=== PATIENT | male | born 1985 | race Two or more races ===

== ENCOUNTER 2023-08-29 16:45 | Inpatient (IN) | payer OTHER ==
[2023-08-29] VITALS (7 sets, daily range): BP systolic 117–126; BP diastolic 75–83; PULSE 74–98; RESP 14–19; TEMP 98.4–98.7; O2SAT 20–100
[~2023-08-29] VITALS: Ht 172.7 cm; Wt 56.6 kg
[2023-08-29 18:07] LABS: Chloride 111 mmol/L (98-107); Potassium 3.4 mmol/L (3.5-5.1); Sodium 140 mmol/L (136-145)
[2023-08-29 18:08] LABS: Anion Gap 7 (5-15); Carbon Dioxide 22 mmol/L (20-30)
[2023-08-29 18:09] LABS: Calcium 8.8 mg/dL (8.7-10.4)
[2023-08-29 18:13] LABS: BUN/Creatinine Ratio 7.9 (10.0-20.0); Blood Urea Nitrogen 6 mg/dL (9-23); Glucose 98 mg/dL (74-106); INR 1.42 (0.9-1.15); Partial Thromboplastin Time 29.1 SEC (24.5-34.5); Prothrombin Time 14.6 sec (9.3-11.8)
[2023-08-29 18:32] LABS: Basophils # (auto) 0 10 ^3/uL (0-0.2); Eosinophils # (auto) 0.1 10 ^3/uL (0-0.8); Mean Corpuscular Volume 47.8 fL (80.0-100.0); Monocytes # (auto) 0.4 10 ^3/uL (0-1.3); Neutrophils # (auto) 2.4 10 ^3/uL (1.6-8.6)
[2023-08-29 18:34] LABS: Basophils % (auto) 0.1 % (0.0-2.0); Eosinophils % (auto) 1.8 % (0.0-7.0); Hematocrit 26.4 % (41.0-53.0); Hemoglobin 7.3 g/dL (13.5-17.5); Lymphocytes # (auto) 2.1 10 ^3/uL (0.4-5.4); Lymphocytes % (auto) 42.3 % (10.0-50.0); Mean Corpuscular Hemoglobin 13.3 pg (28.0-32.0); Mean Corpuscular Hgb Conc. 27.7 g/dL (32.0-36.0); Monocytes % (auto) 8.4 % (0.0-12.0); Neutrophils % (auto) 47.4 % (37.0-80.0); Nucleated Red Blood Cells % 0.2 %; Red Blood Cells 5.52 10^6/uL (4.5-5.90)
[2023-08-29 19:08] LABS: Urine WBC None Seen /hpf (0 - 3)
[2023-08-29 19:19] LABS: Anisocytosis Slight; Hypochromia Marked; Platelet Estimate Adequate
[2023-08-29 19:24] LABS: Urine Bacteria NONE SEEN /hpf (None Seen); Urine Blood Negative /uL (Negative); Urine Clarity Clear (Clear); Urine Color Colorless (Yellow); Urine Protein, UAD Negative (Negative); Urine Specific Gravity 1.002 (1.001-1.035); Urine Urobilinogen Normal (Negative); Urine pH 6.5 (5.0-8.0)
[2023-08-29] MEDS ORDERED: IOHEXOL 300 MG/ML 100ML BOTTLE IJ ONE (20:43)
[2023-08-29] MEDS ORDERED: CYANOCOBALAMIN (B-12) 1000 MCG/1 ML VIAL IM ONE (21:45)
[2023-08-29] MEDS ORDERED: PANTOPRAZOLE 40 MG/10 ML VIAL INJ IV ONE (22:00)
[2023-08-29] MEDS ORDERED: TAMSULOSIN HYDROCHLORIDE 0.4 MG CAP PO ONE (22:00)
[2023-08-29] MEDS ORDERED: POLYETHYLENE GLYCOL 17 GM PWDR PO ONE ×2 (22:00)
[2023-08-30] VITALS (11 sets, daily range): BP systolic 102–117; BP diastolic 63–87; PULSE 66–76; RESP 16–20; TEMP 36.4; O2SAT 20–100
[2023-08-30] MEDS ORDERED: ONDANSETRON HCL 4 MG/2 ML VIAL IV ONE (02:00)
[2023-08-30] MEDS ORDERED: FOLIC ACID 1 MG TAB PO ONE (10:00)
[2023-08-30 10:31] LABS: Basophils # (auto) 0 10 ^3/uL (0-0.2); Eosinophils # (auto) 0.1 10 ^3/uL (0-0.8); Lymphocytes # (auto) 1.5 10 ^3/uL (0.4-5.4); Monocytes # (auto) 0.4 10 ^3/uL (0-1.3)
[2023-08-30 10:33] LABS: Basophils % (auto) 0.3 % (0.0-2.0); Eosinophils % (auto) 2.7 % (0.0-7.0); Hematocrit 33.3 % (41.0-53.0); Hemoglobin 9.4 g/dL (13.5-17.5); Lymphocytes % (auto) 35.8 % (10.0-50.0); Mean Corpuscular Hemoglobin 15.3 pg (28.0-32.0); Mean Corpuscular Hgb Conc. 28.2 g/dL (32.0-36.0); Mean Corpuscular Volume 54.2 fL (80.0-100.0); Neutrophils # (auto) 2.1 10 ^3/uL (1.6-8.6); Neutrophils % (auto) 52.2 % (37.0-80.0); Nucleated Red Blood Cells % 0.3 %; Red Blood Cells 6.15 10^6/uL (4.5-5.90); White Blood Cell 4.1 10^3/uL (4.4-10.8)
[2023-08-30 10:35] LABS: Red Cell Distribution Width 33.2 % (11.8-14.3)
[2023-08-30 10:47] LABS: Alanine Aminotransferase 25 U/L (7-40); Albumin 3.8 g/dL (3.2-4.8); Alkaline Phosphatase 62 U/L (46-116); Anion Gap 4 (5-15); Anisocytosis Moderate; Aspartate Aminotransferase 20 U/L (13-40); Bilirubin, Total 0.9 mg/dL (0.2-1.0); Blood Urea Nitrogen 5 mg/dL (9-23); Carbon Dioxide 25 mmol/L (20-30); Chloride 113 mmol/L (98-107); Glucose 91 mg/dL (74-106); Hypochromia Moderate; Potassium 4.2 mmol/L (3.5-5.1); Sodium 142 mmol/L (136-145); Total Protein 6.6 g/dL (5.7-8.2)
[2023-08-30 10:48] LABS: Ovalocytes MODERATE; Platelet Estimate Adequate; Polychromasia Slight; Tear Drop Cells FEW
[2023-08-30 11:03] LABS: BUN/Creatinine Ratio 6.8 (10.0-20.0)
[2023-08-30] MEDS ORDERED: amLODIPine BESYLATE 5 MG TAB PO ONE (17:30)
[2023-08-31 05:00] VITALS: BP 124/72; PULSE 74; RESP 16; TEMP 98; O2SAT 97
[2023-08-31 08:00] VITALS: PULSE 69; PULSE 71; RESP 20; O2SAT 97
[2023-08-31 08:52] VITALS: BP 114/72; PULSE 69; RESP 20; TEMP 98.2; O2SAT 97
[2023-08-31 12:28] VITALS: BP 107/80; PULSE 67; RESP 20; TEMP 98.3; O2SAT 97
[2023-08-31 17:17] VITALS: BP 102/63; PULSE 79; RESP 20; TEMP 98.1; O2SAT 97
[2023-08-31 20:00] VITALS: PULSE 92; RESP 18; O2SAT 95
[2023-08-31] MEDS: Ensure HIGH Protein Chocolate 8oz Bottle PO SCH (22:00)
[2023-08-31] MEDS ORDERED: TAMSULOSIN HYDROCHLORIDE 0.4 MG CAP PO ONE (22:00)
[2023-08-31] MEDS: PANTOPRAZOLE 40 MG TAB PO SCH (23:23)
[2023-09-01 05:14] VITALS: BP 111/65; PULSE 73; RESP 14; TEMP 98.2; O2SAT 95
[2023-09-01] MEDS: Ensure HIGH Protein Chocolate 8oz Bottle PO SCH ×2 (07:30→11:30)
[2023-09-01 08:30] VITALS: PULSE 73; RESP 14; O2SAT 95
[2023-09-01 09:00] VITALS: BP 110/71; PULSE 73; RESP 18; TEMP 98.2; O2SAT 97
[2023-09-01] MEDS: PANTOPRAZOLE 40 MG TAB PO SCH (09:58)
[2023-09-01] MEDS ORDERED: TAMSULOSIN HYDROCHLORIDE 0.4 MG CAP PO SCH ×2 (10:00→18:00)
[2023-09-01] MEDS ORDERED: FOLIC ACID 1 MG TAB PO SCH (10:00)
[2023-09-01 12:15] VITALS: BP 105/63; PULSE 75; RESP 16; TEMP 97.7; O2SAT 97
[2023-09-01 17:00] VITALS: BP 104/74; PULSE 81; RESP 18; TEMP 98.4; O2SAT 97
[2023-09-01] MEDS ORDERED: AML5T PO (17:27)
[2023-09-01] MEDS ORDERED: TAMS-35 PO (17:29)
[2023-09-01] MEDS ORDERED: FOLI-119 PO (17:29)
[2023-09-01] MEDS ORDERED: PANT40TA2 PO (17:29)
[2023-09-05] MEDS ORDERED: CYANOCOBALAMIN (B-12) 1000 MCG/1 ML VIAL IM SCH (22:00)
== END 2023-09-01 18:19 | DRG 812 ==
LOC: ER 16:45 → TELE 21:26 → EEVIPCON 21:26 → TELE-WESTW 22:21
PROVIDERS: ADMIT Specialist; ATTEND Internal Medicine
PROC: 30233N0 Transfusion of Autologous Red Blood Cells into Peripheral Vein, Percutaneous Approach (ICD-10-PCS; principal; 2023-08-29)
DX: D56.9 Thalassemia, unspecified (principal); D64.9 Anemia, unspecified; I10 Essential (primary) hypertension; N40.0 Benign prostatic hyperplasia without lower urinary tract symptoms
CPT/HCPCS: 36415; 36430; 74177; 80048; 80053; 81001; 85025; 85610; 85730; 86850; 86900; 86901; 86920; C9113; G0378; J2405